=== PATIENT | male | born 1995 | race African-American/Black ===

== ENCOUNTER 2024-06-29 03:35 | Emergency (ER) | payer MEDICAID ==
[~2024-06-29] VITALS: Ht 190.5 cm; Wt 123.0 kg
[2024-06-29 03:40] VITALS: PULSE 92; O2SAT 100
[2024-06-29 03:49] VITALS: BP 146/89; RESP 18; TEMP 36.8; O2SAT 97
== END 2024-06-29 03:55 | disposition left against medical advice (07) ==
LOC: ER 03:35
DX: F41.9 Anxiety disorder, unspecified (principal); Z53.21 Procedure and treatment not carried out due to patient leaving prior to being seen by health care provider